=== PATIENT | male | born 1945 | race Caucasian/White ===

== ENCOUNTER → 2020-05-15 17:04 | Outpatient (CLI) | payer MEDICARE, SELFPAY ==
[2020-05-15 19:15] LABS: Chloride 102 mmol/L (98-107); Potassium 4.5 mmoL/L (3.5-5.1); Sodium 141 mmol/L (136-145)
[2020-05-15 19:17] LABS: Blood Urea Nitrogen 26 mg/dl (9-20); Estimated Glomerular Filt Rate 65 ml/min (>60); GFR (African American) 79 ML/MIN (>60)
[2020-05-15 19:18] LABS: Alanine Aminotransferase 21 U/L (12-78); Albumin Level 4.7 g/dl (3.5-5.0); Albumin/Globulin Ratio 1.6 (1.1-1.8); Alkaline Phosphatase 79 U/L (38-126); Anion Gap 16.5 mEq/L (5-15); Aspartate Amino Transferase 30 U/L (17-59); Bilirubin,Total 0.6 mg/dl (0.2-1.3); Calcium 9.5 mg/dl (8.4-10.2); Carbon Dioxide 27 mmol/L (22.0-30.0); Globulin 2.9 g/dL (1.3-3.2); Glucose 93 mg/dl (74-100); Total Protein,Serum 7.6 g/dl (6.3-8.2)
[2020-05-17 09:10] LABS: Hep A Ab, IgM Negative (Negative); Hepatitis B Core Antibody IgM Negative (Negative); Hepatitis B Surface Antigen Negative (Negative)
[2020-05-17 11:29] LABS: Hepatitis C Antibody <0.1 s/co ratio (0.0-0.9)
== END ==
PROVIDERS: Visit Provider Family Medicine
DX: Z20.5 Contact with and (suspected) exposure to viral hepatitis (principal); R53.83 Other fatigue
CPT/HCPCS: 80053; 80074

== ENCOUNTER → 2020-06-28 14:26 | Outpatient (CLI) | payer MEDICARE, SELFPAY ==
--- NOTE | 2020-06-28 14:31 | XR_ITS ---
PROCEDURE: XR CHEST 2V CLINICAL HISTORY: pulmonary fibrosis Pulmonary fibrosis, shortness of air COMPARISON: No exams were available for comparison FINDINGS: There has been a prior CABG. Bipolar pacemaker is present from left subclavian approach. The lungs are clear without infiltrates, suspicious nodules, or pleural effusions. No acute bony abnormalities. IMPRESSION: No acute findings. Dictated by: Girish Berumen MD 06/28/2020 14:47 Girish Berumen MD in [place] 06/28/2020 14:47
== END ==
PROVIDERS: PCP Family Medicine; Visit Provider Family Medicine
DX: R05 Cough (principal)
CPT/HCPCS: 71046

== ENCOUNTER → 2020-07-27 13:10 | Outpatient (CLI) | payer MEDICARE, SELFPAY ==
--- NOTE | 2020-07-27 14:49 | PC.NURSE ---
PFT and 6 minute walk test completed without incident. Albuterol 0.083% given per protocol, Pt tolerated well.
--- NOTE | 2020-07-27 14:51 | CT_ITS ---
PROCEDURE: CT LUNG SCREENING CLINICAL INDICATION: LDCT Thirty pack-year smoking history, asymptomatic for lung cancer COMPARISON: CR XR CHEST 2V from 06/28/2020 TECHNIQUE: The exam was performed on a GE Light Speed [address] scanner using 2.90 mGy CTDI. A low dose helical CT CHEST was performed on a multi-detector scanner. All CT scans at the facility use one or more dose reduction, viz: automated exposure control, ma/kV adjustment per patient size (including targeted exams where dose is matched to indication, i.e. head), or iterative reconstruction technique. The LDCT was performed in a facility that meets the criteria for the screening program. Data regarding this exam was submitted to ACR which is an approved registry. The order for this exam indicates that it came as a result of a lung cancer screening counseling shard decision-making visit that included all the elements required of such a visit including smoking cessation. The radiologist interpreting this exam meets the CMS criteria for the LDCT lung cancer screening program. The exam is reported using the Lung-RADS classification scale and reported to the ACR registry. NOTE: This study was performed for the specific purposes of lung cancer screening and is not an alternative to diagnostic chest CT. RADIATION DOSE: CTDI vol(CT dose Index-volume) = 2.90mG DLP (Dose Length Product) = 109.68 mGcm FINDINGS: Artifact is present from the pacemaker. Changes of COPD with scattered areas of scarring with bronchial thickening and evidence of old granulomatous disease. Faint nodularity present in the right upper lobe laterally with a tree in bud pattern and may be post infectious in nature. Mild bronchiectasis left lower lobe posteriorly and medially with some atelectatic or fibrotic changes at this area. OTHER FINDINGS: Scattered small mediastinal lymph nodes. Prior median sternotomy/CABG with coronary artery calcifications and/or stents noted. There is mild fusiform dilatation of the lower descending thoracic aorta at 3.5 cm. There is an exophytic isodense the projecting off the posterior aspect of the left kidney superiorly at 2 cm and may represent a renal cyst. There is mild wedging of L1 age indeterminate. IMPRESSION: Lung-RADS Category 1 Negative Follow-up: Continue annual screening with LDCT in 12 months Other findings including COPD, bronchial thickening, and bronchiectasis in the left lower lobe with a nonspecific small area of tree in bud pattern in the right upper lobe which may be infectious in nature. Dictated by: Girish Berumen MD 08/05/2020 07:25 Girish Berumen MD in [facility] 08/05/2020 07:25
== END ==
PROVIDERS: PCP Family Medicine; Visit Provider Internal Medicine Pulmonary Disease
DX: Z87.891 Personal history of nicotine dependence (principal); Z12.2 Encounter for screening for malignant neoplasm of respiratory organs; R06.09 Other forms of dyspnea
CPT/HCPCS: 71271; 94060; 94618; 94726; 94729

== ENCOUNTER → 2020-08-10 11:08 | Outpatient (CLI) | payer MEDICARE, SELFPAY | PROVIDERS: Visit Provider Internal Medicine Pulmonary Disease | DX: R06.02 Shortness of breath (principal) ==

== ENCOUNTER → 2020-08-14 10:02 | Outpatient (CLI) | payer MEDICARE, SELFPAY ==
[2020-08-14 11:41] LABS: Basophils % 0.5 % (0.1-2.0); Eosinophils # 0.2 K/mm3 (0.0-0.4); Eosinophils % 2.4 % (0.1-12.0); Hematocrit 50.1 % (42.0-52.0); Hemoglobin 15.9 g/dL (14.1-18.0); Lymphocytes # 2.1 K/mm3 (0.7-4.5); Lymphocytes % 25.8 % (10-50); Mean Corpuscular HGB Conc 31.7 g/dL (31.8-35.4); Mean Corpuscular Hemoglobin 30.7 pg (27.0-31.2); Mean Corpuscular Volume 96.7 fl (80-94); Mean Platelet Volume 7.9 fl (7.4-10.4); Monocytes # 0.5 K/mm3 (0.1-1.0); Monocytes % 6.3 % (1.7-9.3); Neutrophils # 5.3 K/mm3 (1.8-7.8); Platelet Count 269 K/mm3 (142-424); Red Blood Count 5.18 M/mm3 (4.60-6.20); Red Cell Distribution Width 13.9 % (11.5-17.5); White Blood Count 8.1 K/mm3 (4.8-10.8)
[2020-08-14 12:51] LABS: C-Reactive Protein 6.3 mg/L (0-4)
[2020-08-18 14:10] LABS: D001-IgE D pteronyssinus <0.10 kU/L (Class 0); D002-IgE D farinae <0.10 kU/L (Class 0); E001-IgE Cat Dander <0.10 kU/L (Class 0); E005-IgE Dog Dander <0.10 kU/L (Class 0); G002-IgE Bermuda Grass <0.10 kU/L (Class 0); G006-IgE Timothy Grass <0.10 kU/L (Class 0); I006-IgE Cockroach, German <0.10 kU/L (Class 0); Immunoglobulin E, Total 483 IU/mL (6-495); M001-IgE Penicillium chrysogen <0.10 kU/L (Class 0); M002-IgE Cladosporium herbarum <0.10 kU/L (Class 0); M003-IgE Aspergillus fumigatus <0.10 kU/L (Class 0); M006-IgE Alternaria alternata <0.10 kU/L (Class 0); T001-IgE Maple/Box Elder <0.10 kU/L (Class 0); T006-IgE Cedar, Mountain <0.10 kU/L (Class 0); T007-IgE Oak, White <0.10 kU/L (Class 0); T008-IgE Elm, American <0.10 kU/L (Class 0); T010-IgE Walnut <0.10 kU/L (Class 0); T011-IgE Maple Leaf Sycamore <0.10 kU/L (Class 0); T014-IgE Cottonwood <0.10 kU/L (Class 0); T015-IgE Ash, White <0.10 kU/L (Class 0); T022-IgE Pecan, Hickory <0.10 kU/L (Class 0); T070-IgE White Mulberry <0.10 kU/L (Class 0); W001-IgE Ragweed, Short <0.10 kU/L (Class 0); W011-IgE Thistle, Russian <0.10 kU/L (Class 0); W014-IgE Pigweed, Common <0.10 kU/L (Class 0); W016-IgE Rough Marshelder <0.10 kU/L (Class 0)
[2020-08-18 17:24] LABS: E072-IgE Mouse Urine <0.10 kU/L (Class 0); QuantiFERON-TB Gold Plus Negative (Negative)
== END ==
PROVIDERS: Visit Provider Internal Medicine Pulmonary Disease
DX: R06.00 Dyspnea, unspecified; J18.9 Pneumonia, unspecified organism; J45.909 Unspecified asthma, uncomplicated; J47.9 Bronchiectasis, uncomplicated; G47.34 Idiopathic sleep related nonobstructive alveolar hypoventilation; Z87.891 Personal history of nicotine dependence
CPT/HCPCS: 36415; 82785; 85025; 86003; 86140; 86480; 87070; 87205

== ENCOUNTER → 2020-08-15 10:54 | Outpatient (CLI) | payer MEDICARE, SELFPAY | PROVIDERS: Visit Provider Internal Medicine Pulmonary Disease | DX: R06.00 Dyspnea, unspecified; J47.9 Bronchiectasis, uncomplicated; R93.89 Abnormal findings on diagnostic imaging of other specified body structures; J45.909 Unspecified asthma, uncomplicated; G47.34 Idiopathic sleep related nonobstructive alveolar hypoventilation; Z87.891 Personal history of nicotine dependence | CPT/HCPCS: 87116; 87186; 87206 ==

== ENCOUNTER 2020-08-17 12:41 | Emergency (ER) | payer MEDICARE, SELFPAY ==
[2020-08-17 12:42] VITALS: BP 106/59; PULSE 67; RESP 20; TEMP 36.1; O2SAT 90; O2SAT 95; BMI 28.7
--- NOTE | 2020-08-17 12:42 | ECG_ITS ---
APPROVED REPORT Exam: Resting ECG HR:67 bpm ECG Measurements Heart Rate 67 AXES NH 214 P 72 QRSd 100 QRS -70 QT 372 T 130 QTc 393 Conclusion Sinus rhythm with 1st degree AV block Left axis deviation Septal infarct, age undetermined ST & T wave abnormality, consider lateral ischemia Abnormal ECG Electronically signed by : Bhargav Palma, 08/17/2020 18:43:52
--- NOTE | 2020-08-17 12:55 | XR_ITS ---
PROCEDURE: XR CHEST PORTABLE CLINICAL HISTORY: SOB Shortness of breath COMPARISON: CR XR CHEST 2V from 06/28/[address] LUNG SCREENING from 07/27/2020 FINDINGS: Bipolar pacemaker is present from left subclavian approach. Normal heart size. Prior CABG. The lungs are clear without infiltrates, suspicious nodules, or pleural effusions. Faint nodularity noted overlying the left lower lung zone at the 5th rib possibly due to nipple shadow and could be confirmed nipple markers.. No acute bony abnormalities. IMPRESSION: As above, no acute finding Dictated by: Girish Berumen MD 08/17/2020 15:03 Girish Berumen MD in [facility] 08/17/2020 15:03
--- NOTE | 2020-08-17 12:59 | CT_ITS ---
PROCEDURE: CT HEAD/BRAIN WO CON CLINICAL INDICATION: syncope Syncope, Altered mental status, altered level of consciousness, confusion, disorientation COMPARISON: No exams were available for comparison TECHNIQUE: Axial images obtained. All CT scans at the facility use one or more dose reduction, viz: automated exposure control, ma/kV adjustment per patient size (including targeted exams where dose is matched to indication, i.e. head), or iterative reconstruction technique. FINDINGS: No midline shift, mass effect, intracranial hemorrhage, hydrocephalus, or extra-axial fluid collection is evident. There is generalized atrophy with hypoattenuation of the periventricular white matter consistent with microangiopathic changes.. Low-density changes are present in the left frontal lobe suggesting an area old infarction. The calvarium has an unremarkable appearance. No mastoid effusion. No sinus air-fluid level. IMPRESSION: No acute intracranial finding Dictated by: Girish Berumen MD 08/17/2020 14:56 Girish Berumen MD in [facility] 08/17/2020 14:56
--- NOTE | 2020-08-17 12:59 | HMH.EDGENADL ---
ED Disposition Clinical Impression: Elevated serum creatinine Syncope Qualifiers: Syncope type: unspecified Qualified Code(s): R55 - Syncope and collapse Hypotension Qualifiers: Hypotension type: unspecified hypotension type Qualified Code(s): I95.9 - Hypotension, unspecified Disposition: Home, Self-Care Condition on Discharge: Good Instructions: DI for Syncope in Adults (Fainting), DI for Hypotension Additional Instructions: Follow-up with Dr. Padilla immediately following your visit here. Referrals: Aman Padilla MD [Primary Care Provider] - - Critical Care Critical Care Time: No Attestation: On 08/17/20, the high probability of a clinically significant, sudden or life threatening deterioration of the following system(s) required my full and direct attention, intervention and personal management. The time I documented below is in addition to time spent performing reported procedures but includes the following listed in this critical care notation. Medical Decision Making - Medical Records Medical records reviewed: Yes: I reviewed the patient's medical records. - Jett Inquiry Pt receiving controlled substance: No Vital Signs: 08/17/20 12:42 08/17/20 13:44 Temperature 97 F L Temperature Source Oral Pulse Rate [Radial] 67 76 Respiratory Rate 20 Blood Pressure [Right Arm] 106/59 L 97/61 L Blood Pressure Mean [Right Arm] 74 73 Blood Pressure Source [Right Arm] Automatic Cuff Blood Pressure Position [Right Arm] Sitting Sitting 02 Sat by Pulse Oximetry 95 93 L Oxygen Delivery Method Nasal Cannula Nasal Cannula Oxygen Flow Rate (LPM) 2 2 - Lab Data Lab results reviewed: Yes: I reviewed the patient's lab results. Lab Results 08/17/20 13:20: WBC 8.1, RBC 5.19, Hgb 16.0, Hct 50.1, MCV 96.4 H, MCH 30.8, MCHC 31.9, RDW 13.8, Plt Count 305, MPV 7.8, Neut % (Auto) 71.0, Lymph % (Auto) 21.2, Cooke % (Auto) 5.5, Eos % (Auto) 1.8, Baso % (Auto) 0.5, Neut # (Auto) 5.7, Lymph # (Auto) 1.7, [place]oke # (Auto) 0.4, Eos # (Auto) 0.2, Baso # (Auto) 0.0 08/17/20 13:20: Sodium 140, Potassium 4.5, Chloride 100, Carbon Dioxide 33 H, Anion Gap 11.5, BUN 29 H, Creatinine 1.90 H, Estimated Creat Clear 39, Estimated GFR 35 L, Est GFR ( Amer) 42 L, Glucose 154 H, Calcium 9.3, Troponin I 0.02 08/17/20 13:20: Total Bilirubin 0.5, Direct Bilirubin 0.3, Conjugated Bilirubin 0.0, Indirect Bilirubin 0.2, Unconjugated Bilirubin 0.2, AST 47, ALT 27, Alkaline Phosphatase 74, NT-Pro-B Natriuret Pep 202 H, Total Protein 7.3, Albumin 4.3 08/17/20 13:20: Lactate 1.7 08/17/20 13:20: SARS-CoV-2 IgG Ab (Rapid) Negative, SARS-CoV-2 IgM Ab (Rapid) Negative Result diagrams: 08/17/20 13:20 08/17/20 13:20 Orders (Tests/Meds): ED MEDICATIONS Generic Name Dose Route Start Last Admin Trade Name Freq PRN Reason Stop Dose Admin Sodium Chloride 1,000 mls @ 999 mls/hr 08/17/20 14:15 08/17/20 14:27 Sod Chlor 0.9% 1000ml Bag IV 08/17/20 15:15 999 mls/hr .Q1H1M ADAM Administration ORDERS Category Date Time Status CT head/brain wo con Stat Cat Scan 08/17/20 12:59 Taken XR chest portable Stat Exams 08/17/20 12:55 Taken Troponin I Q3H Lab 08/17/20 16:00 Ordered Troponin I Q3H Lab 08/17/20 19:00 Ordered Blood Culture Stat Micro 08/17/20 13:20 Received - Radiology Data #1 Image(s): Chest Image Reviewed: Yes I reviewed the patient's radiology image Preliminary Findings: Normal/NAD - CT Data CT Scan: Head Time Received: 14:47 Preliminary Findings: Normal/NAD - ECG Data Tracing #1 EKG at 1242 shows a sinus rhythm with borderline first-degree block. Rate of 67. Normal QRS, QTc. No STEMI. EKG interpreted by me. Medical Decision Narrative: Patient with CT head that is negative. He is feeling much better after observation here and fluids. Creatinine slightly elevated at 1.9 likely secondary to a degree of dehydration with both his furosemide and spironolactone. His chest x-ray is clear so he was s
--- NOTE | 2020-08-17 13:01 | PC.NURSE ---
VS delayed due to attempting to get IV access.
--- NOTE | 2020-08-17 13:08 | PC.NURSE ---
Rad at bedside
[2020-08-17 13:35] LABS: Basophils % 0.5 % (0.1-2.0); Eosinophils # 0.2 K/mm3 (0.0-0.4); Eosinophils % 1.8 % (0.1-12.0); Hematocrit 50.1 % (42.0-52.0); Lymphocytes # 1.7 K/mm3 (0.7-4.5); Lymphocytes % 21.2 % (10-50); Mean Corpuscular HGB Conc 31.9 g/dL (31.8-35.4); Mean Corpuscular Hemoglobin 30.8 pg (27.0-31.2); Mean Corpuscular Volume 96.4 fl (80-94); Mean Platelet Volume 7.8 fl (7.4-10.4); Monocytes # 0.4 K/mm3 (0.1-1.0); Monocytes % 5.5 % (1.7-9.3); Neutrophils # 5.7 K/mm3 (1.8-7.8); Platelet Count 305 K/mm3 (142-424); Red Blood Count 5.19 M/mm3 (4.60-6.20); Red Cell Distribution Width 13.8 % (11.5-17.5); White Blood Count 8.1 K/mm3 (4.8-10.8)
[2020-08-17 13:38] LABS: Chloride 100 mmol/L (98-107); Sodium 140 mmol/L (136-145)
[2020-08-17 13:39] LABS: Potassium 4.5 mmoL/L (3.5-5.1)
[2020-08-17 13:40] LABS: Bilirubin,Unconjugated 0.2 mg/dL (0.0-1.1); Lactic Acid 1.7 mmol/L (0.7-2.1)
[2020-08-17 13:41] LABS: Alanine Aminotransferase 27 U/L (12-78); Albumin Level 4.3 g/dl (3.5-5.0); Alkaline Phosphatase 74 U/L (38-126); Aspartate Amino Transferase 47 U/L (17-59); Bilirubin,Direct 0.3 mg/dl (0.0-0.4); Bilirubin,Indirect 0.2 mg/dL (0.0-0.9); Bilirubin,Total 0.5 mg/dl (0.2-1.3); Blood Urea Nitrogen 29 mg/dl (9-20); Creatinine Clearance Estimated 39 mL/min (50-200); Estimated Glomerular Filt Rate 35 ml/min (>60); GFR (African American) 42 ML/MIN (>60); Total Protein,Serum 7.3 g/dl (6.3-8.2)
[2020-08-17 13:42] LABS: Anion Gap 11.5 mEq/L (5-15); Calcium 9.3 mg/dl (8.4-10.2); Carbon Dioxide 33 mmol/L (22.0-30.0); Glucose 154 mg/dl (74-100)
[2020-08-17 13:44] VITALS: BP 97/61; PULSE 76; O2SAT 93
[2020-08-17 13:50] LABS: NT Pro Brain Natriuretic Pep. 202 pg/mL (0-125)
[2020-08-17 13:54] LABS: Troponin I 0.02 ng/ml (0.00-0.034)
[2020-08-17 14:03] LABS: Coronavirus 19 IgG Antibody Negative (Negative); Coronavirus 19 IgM Antibody Negative (Negative)
[2020-08-17 14:59] VITALS: BP 133/62; PULSE 88
[2020-08-17 15:51] VITALS: BP 123/73; PULSE 88; RESP 24; TEMP 36.4; O2SAT 97
== END 2020-08-17 15:52 | disposition home or self-care (01) ==
PROVIDERS: Emergency Provider Emergency Medicine; PCP Family Medicine
DX: R55 Syncope and collapse (principal); I95.9 Hypotension, unspecified; I50.9 Heart failure, unspecified; I25.10 Atherosclerotic heart disease of native coronary artery without angina pectoris; J44.9 Chronic obstructive pulmonary disease, unspecified; E11.9 Type 2 diabetes mellitus without complications; Z01.84 Encounter for antibody response examination; Z99.81 Dependence on supplemental oxygen; Z88.2 Allergy status to sulfonamides; Z79.899 Other long term (current) drug therapy; E78.5 Hyperlipidemia, unspecified
CPT/HCPCS: 70450; 71045; 80048; 80076; 83605; 83880; 84484; 85025; 86328; 87040; 93005; 96365; 99284

== ENCOUNTER → 2021-02-22 12:07 | Outpatient (CLI) | payer MEDICARE, SELFPAY ==
--- NOTE | 2021-02-22 12:07 | CT_ITS ---
PROCEDURE: CT LUMBAR SPINE WO CON CLINICAL HISTORY: Severe back pain, claudication Pain over entire back x20yrs COMPARISON: CT CT LUNG SCREENING from 07/27/2020 TECHNIQUE: Axial images obtained with sagittal and coronal reformats. All CT scans at the facility use one or more dose reduction, viz: automated exposure control, ma/kV adjustment per patient size (including targeted exams where dose is matched to indication, i.e. head), or iterative reconstruction technique. FINDINGS: Normal alignment. T12-L1: Mild chronic wedge compression changes L1 with loss of anteriorly of 25 percent and no retropulsion unchanged 07/27/2020. A Schmorl's node is present along the superior endplate of L1 on the right. L1-L2: Unremarkable. L2-L3: Concentric bulging disc with facet and ligamentum hypertrophic change with bilateral lateral recess and foraminal narrowing. The disc is somewhat eccentric toward the left with left-sided foraminal narrowing greater than right with some impingement laterally upon the exiting L2 nerve root. Facet hypertrophic changes are also greater on the left. L3-L4: Degenerative disc disease with concentric bulging disc with endplate hypertrophic change. There is facet and ligamentum hypertrophic change with severe canal stenosis. There is a associated medium-sized right lateral/foraminal disc herniation extending posteriorly along the lateral aspect of the superior facet of L4. L4-5: Degenerative disc disease with a prominent bulging disc. There is severe facet and ligamentum hypertrophy with severe canal stenosis. There is severe bilateral foraminal narrowing with impingement upon the exiting L4 nerve roots on both sides. L5-S1: Degenerative disc disease with bulging disc and endplate hypertrophic change along with severe facet and ligamentum hypertrophy with impingement upon the exiting L5 nerve roots right greater than left. 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 At the bifurcation of the conjoined nerve root the S1 nerve root descends within a neural foramen with impingement upon the descending S1 nerve root from bony hypertrophy. There is fusiform dilatation of the abdominal aorta at the L3 level measuring at least 3.3 cm. The anterior aspect of the aorta is not included on the exam. There is a 2 cm left renal cyst IMPRESSION: Abnormal CT of the lumbar spine with multilevel lumbar spondylosis with degenerative disc disease, bulging disc, endplate osteophytes, and severe facet and ligamentum hypertrophy with multi level canal stenosis and areas of neural impingement with facet and lateral recess narrowing. There is a lateral herniated disc on the right at L3-L4. Please see above for detailed description at each level. 3.3 cm fusiform abdominal aortic aneurysm Dictated by: Girish Berumen MD 02/23/2021 08:34 Girish Berumen MD in [facility] 02/23/2021 08:34
== END ==
PROVIDERS: PCP Family Medicine; Visit Provider Specialist
DX: G89.29 Other chronic pain (principal); M47.27 Other spondylosis with radiculopathy, lumbosacral region; M54.5 Low back pain
CPT/HCPCS: 72131

== ENCOUNTER → 2021-04-11 11:34 | Outpatient (CLI) | payer MEDICARE, SELFPAY ==
--- NOTE | 2021-04-11 11:43 | CT_ITS ---
Procedure: CT ANGIO ABDOMEN/FEMORAL CLINICAL HISTORY: PERIPHERAL VASCULAR DISEASE Lower extremity with activity, COMPARISON: No exams were available for comparison TECHNIQUE: IV Contrast: 100ml Isovue 370 Axial images obtained with sagittal and coronal reformats. All CT scans at the facility use one or more dose reduction, viz: automated exposure control, ma/kV adjustment per patient size (including targeted exams where dose is matched to indication, i.e. head), or iterative reconstruction technique. FINDINGS: Abdominal aorta: There is an abdominal aortic aneurysm measuring up to 3.3 cm transverse and 3.5 cm AP. The aneurysm begins at the level of the renal arteries. There is a moderate amount of mural thrombus. The aneurysm extends to the level 2.7 cm above the aortic bifurcation. There is dilatation of the proximal common iliacs measuring 1.5 cm on the right and 1.3 cm on the left. The mural thrombus within the aneurysm begins at the level of the renal arteries and is causing severe stenosis of the ostium of the left renal artery of 90 percent. This stenosis is 6 mm in length. There is also severe stenosis of the proximal aspect of the right renal artery of at least 80 percent best demonstrated on the sagittal reformatted images. The celiac and SMA have an unremarkable appearance. The AMY is patent. Iliacs: There is mild dilatation of the proximal right common iliac at 1.5 cm. 60 percent short segment Stenosis is present involving the mid aspect of the right external iliac artery. No significant stenosis of the left external iliac or common iliac artery. Right lower extremity runoff: Diffuse atheromatous changes are present involving the femoral artery with multi segmental stenotic areas most severe in the mid to distal SFA up to 70-80 percent. No evidence of occlusion of the SFA. Atheromatous changes involve the popliteal artery. Tibial peroneal trunk is unremarkable with 3 vessel runoff to the ankle on the right Left lower extremity runoff: Atheromatous changes involve the SFA throughout its course with multi segmental areas of stenosis with 50 percent stenosis in the proximal SFA with severe stenosis involving the proximal to mid left SFA of 80 percent short segment.. There is poor opacification of the distal SFA and popliteal region. Delayed images were obtained from the popliteal region down however, there is a small segment at the junction of the left SFA and popliteal which is not adequately opacified. The no significant popliteal stenosis. Tibial peroneal trunk is patent and there is 3 vessel runoff to the ankle on the left. The Nonvascular the gallbladder is contracted with mild thickening of the wall. The no evidence of retroperitoneal hemorrhage. Nonspecific calcification noted in the head of the pancreas. There is colonic diverticulosis but no evidence of diverticulitis. IMPRESSION: 1. Abdominal aortic aneurysm beginning at the level of the renal arteries and extending to just above the aortic bifurcation 3.5 x 3.3 cm with a moderate amount of mural thrombus. 2. Severe bilateral renal artery stenosis. The mural thrombus of the aneurysm appears to be contributing factor to the left renal artery stenosis at its ostium. 3. Mildly dilated proximal common iliacs at 1.5 cm on the right and 1.3 cm on the left. 6 percent short segment stenosis in the mid aspect of the right external iliac artery 4. Diffuse atheromatous changes involve the femoral artery on both sides with high-grade segmental areas of stenosis as described above 5. Three vessel runoff to the ankle bilaterally. Dictated by: Girish Berumen MD 04/11/2021 16:28 Girish Berumen MD in [facility] 04/11/2021 16:28
[2021-04-11 12:25] LABS: Blood Urea Nitrogen 33 mg/dl (9-20); Estimated Glomerular Filt Rate 49 ml/min (>60); GFR (African American) 60 ML/MIN (>60)
--- NOTE | 2021-04-11 12:35 | US_ITS ---
APPROVED REPORT Exam Type: Ankle to Brachial Index Family Life Educator: Ediht Rodriguez CRT Indications Claudication: Bilaterally Rest Pain: Bilaterally Risk Factors Hypertension TIA/CVA History Pressures/Indices Right Indices Left Indices Brachial 117.00 mmHg Brachial 121.00 mmHg Low Thigh 69.00 mmHg 0.57 Low Thigh 129.00 mmHg 1.07 Calf 90.00 mmHg 0.74 Calf 102.00 mmHg 0.84 Ankle(PT) 93.00 mmHg 0.77 Ankle(PT) 107.00 mmHg 0.88 Ankle(DP) 91.00 mmHg 0.75 Ankle(DP) 110.00 mmHg 0.91 Digit 85.00 mmHg 0.70 Digit 64.00 mmHg 0.53 Findings R SARAH 0.8 L SARAH 0.91 R TBI 0.70 L TBI 0.53 Weakened and dampened pulses in Rt lower extremity Abnormal waveforms throughout exam with cardiac arrhythmia. Abnormal toe pressures bilaterally. Conclusion R SARAH 0.8 L SARAH 0.91 R TBI 0.70 L TBI 0.53 Weakened and dampened pulses in Rt lower extremity Abnormal waveforms throughout exam with cardiac arrhythmia. Abnormal toe pressures bilaterally. Electronically signed by : Girish Berumen MD 04/11/2021 16:38:05
== END ==
PROVIDERS: PCP Family Medicine; Visit Provider Surgery
DX: I73.9 Peripheral vascular disease, unspecified (principal); I71.4 Abdominal aortic aneurysm, without rupture
CPT/HCPCS: 36415; 75635; 82565; 84520; 93923; Q9967

== ENCOUNTER 2021-04-19 07:35 | Day surgery (SDC) | payer MEDICARE, SELFPAY ==
[2021-04-19] VITALS (12 sets, daily range): BP systolic 128–167; BP diastolic 73–102; PULSE 67–87; RESP 16–18; O2SAT 87–99; BMI 25.3
--- NOTE | 2021-04-19 | IR_ITS ---
APPROVED REPORT Patient Location: Outpatient PROCEDURES Bilateral selective renal angiogram Catheter placed in the abdominal aorta Abdominal aortography Repositioning of the catheter in the abdominal aorta Bilateral iliofemoral runoff Bare-metal stent deployment to the left renal artery INDICATION Abnormal CTA, Known renal artery stenosis, Renovascular hypertension, Abnormal SARAH, Alexsander claudication class III Informed consent was obtained prior to the procedure. COMPLICATIONS NONE Estimated Blood Loss: LESS THAN 10 ML TECHNIQUE 1% lidocaine used anesthetize right groin the right femoral was accessed via the Salinger technique and a 5 Kiswahili sheath was placed in the right femoral artery. A JR4 catheter was used to perform bilateral selective renal angiography. At the end of this procedure the pigtail catheter was placed in the abdominal aorta and abdominal aortography was performed. The catheter was repositioned and bilateral iliofemoral off was performed. Following this therapeutic heparin was administered and the 5 Kiswahili sheath was exchanged for a 7 Kiswahili sheath. Short BARDALES guide catheter was used to intubate the left renal artery and a Choice PT wire was placed distally. A 6 mm x 12 mm Herculink stent was deployed at 12 denise reducing the severe stenosis to 0%. At the end of the procedure the apparatus was removed the groin was reprepped closure changed sheath was removed good hemostasis was achieved using Perclose device patient was transferred to the postop holding area stable condition ANGIOGRAPHIC RESULTS Right renal artery singular and has an eccentric 30 to 40% nonflow limiting stenosis Left renal artery has an ostial 90% eccentric stenosis The infrarenal abdominal aorta is mildly atheromatous and aneurysmal with no stenosis greater than 10% The bilateral common iliac arteries are mildly atheromatous with diffuse 20 to 30%. The bilateral internal iliac arteries are patent. The bilateral external iliac arteries have mild atheromatous plaque with the right external iliac artery having concentric 30% stenosis. The bilateral common femoral arteries are calcified with mild 10 to 20% atheromatous plaque The bilateral profunda femoris arteries are widely patent. The right superficial femoral artery has a mid vessel 90% stenosis with diffuse distal 40% stenoses but is patent with the popliteal artery also being widely patent with mild atheromatous plaque. The popliteal artery then gives rise to the anterior and posterior tibialis artery which are patent to the right foot The left superficial femoral artery has proximal and mid vessel diffuse 70-80% and 90% stenoses. There is inline flow into a 40% diffusely diseased popliteal artery with two-vessel runoff below the knee on the left side IMPRESSION Severe left renal artery stenosis with successful stenting reducing the stenosis to 0% with bare-metal stent Mild to moderate right renal artery stenosis Peripheral artery disease as described above most notably having moderate to severe SFA disease with two-vessel runoff below the knee PLAN 1. Aspirin Plavix for 1 month 2. Start Xarelto 2.5 p.o. twice daily to be started after 48 hours. In 1 month Plavix may be discontinued 3. Recommend medical management of the peripheral artery disease. At this time I do not believe revascularizing the SFAs would have long-term benefit to the patient 4. LDL less than 55 to be achieved with high intensity statin 5. Should patient develop recalcitrant claudication or poorly healing lower extremity ulcers or infections only then would I revascularize the legs. Electronically signed by : Luc Mccauley MD 04/19/2021 12:12:37
[2021-04-19 08:41] LABS: Coronavirus 19, PCR Not Detected (NotDetected); Influenza A, PCR Not Detected (NotDetected); Influenza B, PCR Not Detected (NotDetected)
[2021-04-19 08:44] LABS: Basophils % 0.5 % (0.1-2.0); Eosinophils # 0.2 K/mm3 (0.0-0.4); Eosinophils % 2.2 % (0.1-12.0); Hematocrit 44.5 % (42.0-52.0); Hemoglobin 14.2 g/dL (14.1-18.0); Lymphocytes # 2.3 K/mm3 (0.7-4.5); Lymphocytes % 32.3 % (10-50); Mean Corpuscular Hemoglobin 30.7 pg (27.0-31.2); Mean Corpuscular Volume 95.8 fl (80-94); Mean Platelet Volume 8.1 fl (7.4-10.4); Monocytes # 0.4 K/mm3 (0.1-1.0); Monocytes % 5.9 % (1.7-9.3); Neutrophils # 4.1 K/mm3 (1.8-7.8); Neutrophils % 59.1 % (37.0-80.0); Platelet Count 248 K/mm3 (142-424); Red Blood Count 4.64 M/mm3 (4.60-6.20); Red Cell Distribution Width 13.3 % (11.5-17.5)
[2021-04-19 08:52] LABS: Chloride 106 mmol/L (98-107); Sodium 144 mmol/L (136-145)
[2021-04-19 08:55] LABS: Blood Urea Nitrogen 25 mg/dl (9-20); Calcium 8.7 mg/dl (8.4-10.2); Carbon Dioxide 30 mmol/L (22.0-30.0); Creatinine Clearance Estimated 64 mL/min (50-200); Estimated Glomerular Filt Rate 73 ml/min (>60); GFR (African American) 88 ML/MIN (>60); Glucose 102 mg/dl (74-100)
[2021-04-19 13:05] LABS: CATHL Activated Clotting Time 354 SEC (74-125)
--- NOTE | 2021-04-19 14:23 | HMH.PHACLD ---
Rishi Leiva SR has received discharge medication counseling on the following medications: -PLAVIX -ASA -XARELTO -ATORVASTATIN -LOSARTAN -CARVEDILOL
== END 2021-04-19 13:17 | disposition home or self-care (01) ==
LOC: CATHLAB 07:37
PROVIDERS: PCP Family Medicine; Visit Provider Internal Medicine
DX: I70.213 Atherosclerosis of native arteries of extremities with intermittent claudication, bilateral legs (principal); I15.0 Renovascular hypertension; I70.1 Atherosclerosis of renal artery; I70.92 Chronic total occlusion of artery of the extremities; Z79.01 Long term (current) use of anticoagulants; Z79.02 Long term (current) use of antithrombotics/antiplatelets; Z79.899 Other long term (current) drug therapy; Z20.822 Contact with and (suspected) exposure to COVID-19
CPT/HCPCS: 36247; 37236; 75716; 80048; 85025; 85347; 99152; 99153; C1725; C1760; C1769; C1876; C1894; C9803; J1644; Q9966; U0003; U0005

== ENCOUNTER 2021-08-06 12:27 | Inpatient (IN) | payer MEDICARE, SELFPAY ==
[2021-08-06] VITALS (7 sets, daily range): BP systolic 106–134; BP diastolic 69–82; PULSE 77–87; RESP 17–20; TEMP 36.4–37.2; O2SAT 86–100; BMI 23.5; BMI 24.3
--- NOTE | 2021-08-06 12:29 | XR_ITS ---
FINAL REPORT CLINICAL HISTORY: soa COMPARISON: 08/17/2020 FINDINGS: Two views of the chest were obtained. The patient is status post median sternotomy. There is a left subclavian AICD. The heart size and pulmonary vascularity are within normal limits. The mediastinum is normal. There is left basilar atelectasis. There is no pneumothorax. The bony thorax is intact. IMPRESSION: Left basilar atelectasis. Reviewed, Interpreted and Dictated by Lawson Dave III, MD Transcribed by Bria Goodrich Authenticated by Lawson Dave III, MD on 08/06/2021 02:32:[address] [facility]
--- NOTE | 2021-08-06 12:29 | HMH.EDGENADL ---
ED Disposition Clinical Impression: COVID-19 virus infection, COPD exacerbation Respiratory failure with hypoxia Qualifiers: Chronicity: acute on chronic Qualified Code(s): J96.21 - Acute and chronic respiratory failure with hypoxia Disposition: Admitted As Inpatient Condition on Discharge: Fair Referrals: Aman Padilla MD [Primary Care Provider] - - Critical Care Critical Care Time: No Attestation: On , the high probability of a clinically significant, sudden or life threatening deterioration of the following system(s) required my full and direct attention, intervention and personal management. The time I documented below is in addition to time spent performing reported procedures but includes the following listed in this critical care notation. Medical Decision Making - Jett Inquiry Pt receiving controlled substance: No Vital Signs: 08/06/21 12:54 08/06/21 13:04 08/06/21 13:30 Temperature 97.9 F Temperature Source Oral Pulse Rate 77 Pulse Rate [Left Radial] 85 Respiratory Rate 17 Blood Pressure 106/70 L Blood Pressure [Right Arm] 111/69 Blood Pressure Mean [Right Arm] 83 02 Sat by Pulse Oximetry 86 L 97 100 Oxygen Delivery Method Room Air Nasal Cannula Oxygen Flow Rate (LPM) 2 08/06/21 14:00 Temperature Temperature Source Pulse Rate 78 Pulse Rate [Left Radial] Respiratory Rate Blood Pressure 120/72 Blood Pressure [Right Arm] Blood Pressure Mean [Right Arm] 02 Sat by Pulse Oximetry 97 Oxygen Delivery Method Oxygen Flow Rate (LPM) - Lab Data Lab Results 08/06/21 12:35: SARS-CoV-2 (PCR) Detected A, Influenza A Untype (PCR) Not detected, Influenza Type B (PCR) Not detected 08/06/21 13:01: WBC 6.8, RBC 4.33 L, Hgb 13.6 L, Hct 43.4, MCV 100.3 H, MCH 31.6 H, MCHC 31.5 L, RDW 13.3, Plt Count 216, MPV 7.6, Neut % (Auto) 56.4, Lymph % (Auto) 31.1, Alexander % (Auto) 10.3 H, Eos % (Auto) 0.4, Baso % (Auto) 1.8, Neut # (Auto) 3.9, Lymph # (Auto) 2.1, Alexander # (Auto) 0.7, Eos # (Auto) 0.0, Baso # (Auto) 0.1 08/06/21 13:01: Sodium 134 L, Potassium 4.5, Chloride 96 L, Carbon Dioxide 32 H, Anion Gap 10.5, BUN 19, Creatinine 1.50 H, Estimated Creat Clear 41, Estimated GFR 46 L, Est GFR ( Amer) 55 L, Glucose 98, Calcium 8.7, Total Bilirubin 0.2, AST 38, ALT 23, Alkaline Phosphatase 70, Troponin I 0.05 H, NT-Pro-B Natriuret Pep 1900 H, Total Protein 6.9, Albumin 4.3, Globulin 2.6, Albumin/Globulin Ratio 1.7 08/06/21 13:01: PT 10.9, INR 0.96 Result diagrams: 08/06/21 13:01 08/06/21 13:01 Orders (Tests/Meds): ED MEDICATIONS Generic Name Dose Route Start Last Admin Trade Name Freq PRN Reason Stop Dose Admin Albuterol/Ipratropium 2 puff 08/06/21 20:00 Combivent 20mcg/100mcg Respimat Inhaler IH 09/05/21 19:59 QIDRT ADAM Dexamethasone Sodium Phosphate 6 mg 08/06/21 17:00 Dexamethasone 4mg/Ml 1ml Vial IV 09/05/21 16:59 DAILY ADAM Azithromycin 500 mg/ Sodium 250 mls @ 250 mls/hr 08/06/21 17:00 Chloride IV 08/20/21 16:59 Q24H ADAM Discontinued Medications Generic Name Dose Route Start Last Admin Trade Name Freq PRN Reason Stop Dose Admin Iopamidol 75 ml 08/06/21 15:15 08/06/21 15:16 Iopamidol-370 (76%);100ml Bottle IV 08/06/21 15:16 75 ml ONCE ONE Administration ORDERS Category Date Time Status Troponin I Q3H Lab 08/06/21 16:15 Ordered Troponin I Q3H Lab 08/06/21 19:15 Ordered - Radiology Data #1 Image(s): Chest Image Reviewed: Yes I reviewed the patient's radiology image, Yes I have reviewed radiologist's interpretation Ordering Physician: Abel Diana MD Date of Service: 08/06/21 Procedure(s): XR chest 2V Accession Number(s): [id number] cc: Lawson Dave MD; Aman Padilla MD~ FINAL REPORT CLINICAL HISTORY: soa COMPARISON: 08/17/2020 FINDINGS: Two views of the chest were obtained. The patient is status post median sternotomy. There is a left subclavian AICD. The heart size and
[2021-08-06 12:59] LABS: Influenza A, PCR Not Detected (NotDetected); Influenza B, PCR Not Detected (NotDetected)
[2021-08-06 13:14] LABS: Basophils # 0.1 K/mm3 (0-0.2); Basophils % 1.8 % (0.1-2.0); Eosinophils % 0.4 % (0.1-12.0); Hematocrit 43.4 % (42.0-52.0); Hemoglobin 13.6 g/dL (14.1-18.0); Lymphocytes # 2.1 K/mm3 (0.7-4.5); Lymphocytes % 31.1 % (10-50); Mean Corpuscular HGB Conc 31.5 g/dL (31.8-35.4); Mean Corpuscular Hemoglobin 31.6 pg (27.0-31.2); Mean Corpuscular Volume 100.3 fl (80-94); Mean Platelet Volume 7.6 fl (7.4-10.4); Monocytes # 0.7 K/mm3 (0.1-1.0); Monocytes % 10.3 % (1.7-9.3); Neutrophils # 3.9 K/mm3 (1.8-7.8); Neutrophils % 56.4 % (37.0-80.0); Platelet Count 216 K/mm3 (142-424); Red Blood Count 4.33 M/mm3 (4.60-6.20); Red Cell Distribution Width 13.3 % (11.5-17.5); White Blood Count 6.8 K/mm3 (4.8-10.8)
[2021-08-06 13:21] LABS: INR 0.96 (0.9-1.1); Prothrombin Time 10.9 seconds (10.1-12.5)
[2021-08-06 13:22] LABS: Alanine Aminotransferase 23 U/L (12-78); Albumin Level 4.3 g/dl (3.5-5.0); Albumin/Globulin Ratio 1.7 (1.1-1.8); Alkaline Phosphatase 70 U/L (38-126); Anion Gap 10.5 mEq/L (5-15); Aspartate Amino Transferase 38 U/L (17-59); Bilirubin,Total 0.2 mg/dl (0.2-1.3); Blood Urea Nitrogen 19 mg/dl (9-20); Calcium 8.7 mg/dl (8.4-10.2); Carbon Dioxide 32 mmol/L (22.0-30.0); Chloride 96 mmol/L (98-107); Creatinine Clearance Estimated 41 mL/min (50-200); Estimated Glomerular Filt Rate 46 ml/min (>60); GFR (African American) 55 ML/MIN (>60); Globulin 2.6 g/dL (1.3-3.2); Glucose 98 mg/dl (74-100); Potassium 4.5 mmoL/L (3.5-5.1); Sodium 134 mmol/L (136-145); Total Protein,Serum 6.9 g/dl (6.3-8.2)
[2021-08-06 13:25] LABS: Coronavirus 19, PCR Detected (NotDetected)
[2021-08-06 13:34] LABS: NT Pro Brain Natriuretic Pep. 1900 pg/mL (0-450); Troponin I 0.05 ng/ml (0.00-0.034)
--- NOTE | 2021-08-06 13:39 | CT_ITS ---
FINAL REPORT CLINICAL HISTORY: hypoxia, covid 19 FINDINGS: Thin section axial CT images of the chest were obtained with contrast. 3D reformatted images were also obtained. This study was performed with techniques to keep radiation doses as low as reasonably achievable (ALARA). Individualized dose reduction techniques using automated exposure control or adjustment of mA and/or kV according to the patient''s size were employed. There is no evidence of pulmonary embolism. There is no evidence of thoracic aortic aneurysm or dissection. There is no evidence of mediastinal or hilar mass or adenopathy. The patient is status post median sternotomy. There is no evidence of pulmonary mass or nodule. There is mild atelectasis or scar in the lung bases. Limited images of the upper abdomen are unremarkable. IMPRESSION: No evidence of pulmonary embolism. No mass or localized inflammatory process. Reviewed, Interpreted and Dictated by Lawson Dave III, MD Transcribed by Jada Hay Authenticated by Lawson Dave III, MD on 08/06/2021 04:26:[address] [facility]
--- NOTE | 2021-08-06 13:41 | CA_ITS ---
APPROVED REPORT EXAM: Comprehensive 2D, Doppler, and color-flow Echocardiogram Agricultural Researcher: Makenzie Myrick, RCS, RVS Ht: 5 ft 6 in Wt: 161lbs BSA: 1.82 BP: 111/69 mmHg Indications: Elevated Troponin, CAD-hx CABG, COPD, COVID-19,Hypoxia, AMS, SOA 2D Dimensions Aortic Root 4.18 cm LA Volume 49.60 mL Left Atrium 3.72 cm LA Volume Index [id number] mL/m2 (M/F) 16-34 LVOT 2.23 cm (M/F) 1.5-2.5 Ascending Aorta 3.37 cm M-Mode Dimensions RVDd 3.01 cm (0.9-2.6) LA Diam 4.25 cm (1.9-4.0) LVDd 3.94 cm (3.5-5.7) Ao Diam 4.20 cm (2.0-3.7) LVDs 2.89 cm (3.5-5.7) IVSd 1.37 cm (0.6-1.1) PWd 1.37 cm (0.6-1.1) EF (Teich) 52.70% EPSs 1.37 cm FS 26.60% EDV (Teich) 67.50 mL TAPSE 1.53 (<1.7) ESV (Teich) 31.90 mL LV Diastology E Decel Time 207.00 (160-240 msec) E/A Ratio 0.60 MED E' 5.20 (< 7 cm/sec) MED A' 8.60 cm/s E'/MED E' Ratio 10.98 (>14) LAT E' 5.20 (<10 cm/sec) LAT A' 7.90 cm/s E/LAT E' Ratio 10.98 (>14) Aortic Valve LVOT Max 52.00 (70-110 cm/s) LVOT VTI 9.41 cm AoV Peak Daniel. 116.00 (50-130 cm/s) AO Peak GR. 5.40 mmHg AO Mean GR. 2.50 (<5 mmHg) AO VTI 20.69 (18-25 cm) RADHA (VTI) 1.78 (2.5-4.5 cm2) Mitral Valve MV A Velocity 95.00 (40-130 cm/s) E/A Ratio 0.60 MV Decel. Time 207.00 (160-240 ms) MV Mean Gr. 1.70 (<2mmHg) MV PHT 100.00 ms Pulmonary Valve PV Peak Velocity 66.00 (50-150 cm/s) Tricuspid Valve TR P. Velocity 248.00 cm/s RAP Estimate 10.00 mmHg RVSP 34.60 mmHg Left Ventricle Left atrium is moderately enlarged, left ventricle is normal size, mild concentric left ventricular hypertrophy, visually estimated ejection fraction is 45%, there is abnormal septal motion, grade 1 diastolic dysfunction seen without tissue Doppler evidence of late left atrial pressure. Right Ventricle Right atrium and right ventricle are mildly enlarged with normal contractility, there is a catheter noted in the right ventricle which is likely a pacemaker or ICD lead. Aortic Valve Aortic valve is thickened and calcified, morphology of the aortic valve is not well visualized, Doppler is not indicated for significant aortic stenosis or aortic insufficiency. Mitral Valve Mitral valve leaflets are minimally thickened, there is mild mitral regurgitation. Tricuspid Valve Tricuspid valve is grossly normal, there is mild tricuspid regurgitation, calculated right ventricular systolic pressure 34 mmHg. Pulmonic Valve Pulmonic valve is poorly visualized. Great Vessels Aortic root is enlarged measuring 4.2 cm Inferior vena cava is poorly visualized. Pericardium No significant pericardial effusion noted. Conclusion 1. Biatrial enlargement, normal left ventricular size, mild concentric left ventricular hypertrophy, visually estimated ejection fraction 45%, there is abnormal septal motion, grade 1 diastolic dysfunction seen without tissue Doppler evidence of raise left atrial pressure. 2. Mildly enlarged right ventricle with normal contractility. 3. Aortic root is enlarged measuring 4.2 cm, aortic valve is thickened and calcified, morphology of the aortic valve is not well visualized, Doppler is not indicated for significant aortic stenosis or aortic insufficiency. 4. Mild mitral and tricuspid regurgitation. Calculated right ventricular systolic pressure 34 mmHg. 5. No significant pericardial effusion noted. 6. Inferior vena cava is poorly visualized. Electronic
--- NOTE | 2021-08-06 16:35 | ECG_ITS ---
APPROVED REPORT Exam: Resting ECG HR:72 bpm ECG Measurements Heart Rate 72 AXES CO 246 P 52 QRSd 128 QRS -72 QT 400 T 115 QTc 424 Conclusion SINUS RHYTHM WITH FIRST DEGREE AV BLOCK WITH OCCASIONAL VENTRICULAR PREMATURE COMPLEXES LEFT AXIS DEVIATION [QRS AXIS < -30] SEPTAL MYOCARDIAL INFARCTION , PROBABLY OLD [40+ ms Q WAVE IN V1/V2] MODERATE T-WAVE ABNORMALITY, CONSIDER LATERAL ISCHEMIA [-0.1+ mV T-WAVE IN I/aVL/V5/V6] ABNORMAL ECG UNCONFIRMED REPORT Electronically signed by : Bhargav Palma MD 08/12/2021 18:36:10
[2021-08-06 17:43] LABS: Troponin I 0.02 ng/ml (0.00-0.034)
--- NOTE | 2021-08-06 18:56 | PC.NURSE ---
Pt arrived to the floor at this time.
--- NOTE | 2021-08-06 20:03 | HMH.HP ---
*Admission Date: 08/06/21 *Chief complaint: mental status changes, covid *History of present illness: Patient is a 76-year-old white male, well-known to me, seen in the office earlier today. He was brought in by his daughter who has noted progressive confusion. Patient has been increasingly forgetful, could not remember his dog's name. 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 He has fibrotic crackles in both bases which are always evident. Remote history of Mycobacterium infection. Patient has a history of coronary artery disease, status post CABG. He has a propensity for flash pulmonary edema and volume overload. Several members of the patient's family had been ill with viral features. He had contact with them, as well as to the grocery store. He has not been immunized against COVID. His daughter noted a very vigorous cough which worsened over the last few days. Patient's saturations were in the high 80s in the office. He wears oxygen at home and a as needed basis. In the office he appeared to be euvolemic in the periphery, no calf swelling or tenderness. CTA revealed no pulmonary embolism. Chest x-ray showed some changes at the left base. Patient has significant peripheral vascular disease claudication pain in both legs. [facility] History Medical History: Reports:: Atrial Fibrillation, Chronic Obstructive Pulmonary Disease (COPD), Coronary Artery Disease, Hyperlipidemia, Hypertension, Internal Pacemaker Denies:: Cancer, Diabetes Mellitus Type 1, Diabetes Mellitus Type 2, MRSA, Seizures *Have you ever received a pneumonia vaccine?: No *Have you received a flu vaccine this season?: Yes Other Medical History: Reports: Arthritis Other Surgeries: Yes: Angiogram, CABG, Cardiac Catheterization, Cardiac Surgery, Colonoscopy, Coronary Stent, Pacemaker Amputation: No - *Social History Smoking Status: Former smoker Tobacco Type: cigarettes Alcohol Intake: never Alcohol Intake Frequency:: holidays/special occasions only Substance Use Type: denies use *Occupational Status:: retired Housing: house Household Members: children *Travel in the last 8 weeks: None Family Hx:: No significant family history Review of Systems - Constitutional Reports weakness - Eyes Denies change in vision - ENT Denies abnormal hearing - *Cardiovascular Reports shortness of breath, Denies chest pain - *Respiratory Reports chest congestion, Reports cough, Reports shortness of breath, Reports shortness of breath with activity, Denies coughing up blood - *Gastrointestinal Denies abdominal pain - *Genitourinary Denies difficulty urinating - *Musculoskeletal Reports abnormal walking, Reports joint pain, Reports muscle cramps, Reports muscle weakness - Integumentary/Breasts Denies yellowing of the skin - *Neurologic Reports abnormal walking, Reports behavioral changes, Reports confusion, Reports unsteadiness, Reports memory loss, Reports weakness, Denies seizure-like activity, Denies fainting - Psychiatric Reports behavioral changes, Reports confusion, Reports memory loss - Endocrine Denies cold intolerance, Denies excessive sweating - Hematologic/Lymphatic Denies easy bleeding, Denies easy bruising - Allergic/Immunologic Denies hives Meds Home Medications Medication Instructions Recorded Confirmed Type ipratropium 0.5 mg-albuterol 3 mg 1 dose INHALATION BID 03/23/20 08/06/21 History (2.5 mg base)/3 mL nebulization soln albuterol sulfate 90 mcg/actuation 1 inh INHALATION QID PRN #8.5 g 11/02/20 08/06/21 Rx aerosol inhaler losartan 50 mg tablet 50 mg PO DAILY #90 tab 04/05/21 08/06/21 Rx Aspirin [Aspirin 81mg EC Tab] 81 mg PO DAILY 04/19/21 08/06/21 History Clopidogrel Bisulfate [Plavix 75mg 75 mg PO DAILY 04/19/21 08/06/21 History Tab] Fluticasone/Vilanterol [Breo 1 inh INHALATION DAILY 04/19/21 08/06/21 History Ellipta] Ri
[2021-08-06 21:52] LABS: Troponin I 0.02 ng/ml (0.00-0.034)
[2021-08-07] VITALS (7 sets, daily range): BP systolic 125–166; BP diastolic 57–88; PULSE 66–102; RESP 18–20; TEMP 36.6–37.2; O2SAT 94–99; BMI 24.6
--- NOTE | 2021-08-07 07:15 | P.CONPHA_ITS ---
[facility] Pharmacy VTE Monitoring - Patient Demographics Admission date: 08/07/21 Report Date: 08/07/21 Time: 07:15 Allergies/Adverse Reactions: Patient Allergies sulfamethoxazole [From Bactrim] Adverse Reaction (Severe, Verified 08/06/21 11:45) Organ Failure trimethoprim [From Bactrim] Adverse Reaction (Severe, Verified 08/06/21 11:45) Organ Failure Height: 1.68 m Weight: 69.5 kg Patient Problems: Current Active Problems COVID-19 virus infection (Acute) COPD exacerbation (Acute) Respiratory failure with hypoxia (Acute) Dyspnea (Chronic) Essential hypertension (Chronic) NIYAH (renal artery stenosis) (Chronic) PAD (peripheral artery disease) (Chronic) Erosive osteoarthritis of multiple sites (Acute) Chronic pain of lower extremity (Acute) History of tobacco abuse (Chronic) History of MAC infection (Acute) COPD (chronic obstructive pulmonary disease) (Chronic) Essential hypertension (Acute) CAD (coronary artery disease) (Chronic) History of coronary artery bypass graft (Chronic) - VTE Risk Labs: VTE Related Lab Results Hgb 13.6 g/dL (14.1-18.0) L 08/06/21 13:01 Hct 43.4 % (42.0-52.0) 08/06/21 13:01 Plt Count 216 K/mm3 (142-424) 08/06/21 13:01 PT 10.9 seconds (10.1-12.5) 08/06/21 13:01 INR 0.96 (0.9-1.1) 08/06/21 13:01 BUN 19 mg/dl (9-20) 08/06/21 13:01 Creatinine 1.50 mg/dl (0.66-1.25) H 08/06/21 13:01 Estimated Creat Clear 41 mL/min (50-200) 08/06/21 13:01 Was VTE Risk Assessment Performed: Yes VTE Score: 5 VTE Risk Level: Low Risk Clinical Trial Participant: No - Prophylaxis VTE Prophylaxis Ordered?: Yes Types of VTE Prophylaxis: TEDS Knee High
--- NOTE | 2021-08-07 07:40 | SW/DCPLANNER ---
PATIENT ADMITTED TO [facility] UNDER THE CARE OF DR MURILLO WHO IS A PATIENT OF [facility] FOR A LONG TIME.. HE RESIDES AT HOME IN [facility].. DAUGHTER BROUGHT HIM IN STATING HE HAS HAD SOME VIRAL SYMPTOMS AND HAS NOT BEEN HIMSELF.. CONFUSION HAS BEEN NOTED AND THIS IS NOT LIKE HIM.. HE HAS BEEN VACCINATED FOR COVID BUT SWAB WAS POSITIVE FOR COVID AND HYPOXIA.. WILL FOLLOW PATIENT THROUGH HIS ACUTE CARE STAY AND ASSIST WITH ANY HOME CARE THAT PATIENT MAY NEED AT TIME OF DISPOSITION..
--- NOTE | 2021-08-07 09:40 | HMH.PULMCON ---
*Admission Date: 08/07/21 *Reason for consult:: COVID-19 pneumonia *History of present illness: Mr. Leiva is a 76-year-old female prior smoker greater than [id number] smoking history, asthma COPD overlap syndrome, bronchiectasis, possible respiratory failure presented to the clinic with worsening respiratory system found to be having COVID-19 positive and pulmonary was called for further management [facility] History Medical History: Reports:: Atrial Fibrillation, Chronic Obstructive Pulmonary Disease (COPD), Coronary Artery Disease, Hyperlipidemia, Hypertension, Internal Pacemaker, Peripheral Artery Disease Denies:: Cancer, Diabetes Mellitus Type 1, Diabetes Mellitus Type 2, MRSA, Seizures *Have you ever received a pneumonia vaccine?: Yes *Have you received a flu vaccine this season?: Yes Other Medical History: Reports: Arthritis, Cataracts Laterality Cases: Bilateral: Cataract Other Surgeries: Yes: Angiogram, Appendectomy, CABG, Cardiac Catheterization, Cardiac Surgery, Cholecystectomy, Colonoscopy, Coronary Stent, Pacemaker Amputation: No Fractures: No - *Social History Smoking Status: Former smoker Tobacco Type: cigarettes # Packs/Day (cigarettes): 1 Alcohol Intake: current Alcohol Intake Frequency:: 0-2 drinks per day Substance Use Type: denies use *Occupational Status:: retired Housing: house Household Members: children *Travel in the last 8 weeks: None Family Hx:: No significant family history ROS - Cons Reports body ache(s), Reports fatigue, Denies fever(s) - Eyes Denies change in vision - ENT Denies bleeding gums - Card Reports shortness of breath, Reports shortness of breath with activity - Resp Respiratory: Reports chest congestion, Reports cough, Denies excessive phlegm production, Reports cough with sputum production - GI Gastrointestingal: Denies: abdominal pain, nausea - Psych Denies thoughts of hurting/killing others, Denies thoughts of hurting/killing yourself Meds Home Medications Medication Instructions Recorded Confirmed Type ipratropium 0.5 mg-albuterol 3 mg 1 dose INHALATION BID 03/23/20 08/06/21 History (2.5 mg base)/3 mL nebulization soln albuterol sulfate 90 mcg/actuation 1 inh INHALATION QID PRN #8.5 g 11/02/20 08/06/21 Rx aerosol inhaler losartan 50 mg tablet 50 mg PO DAILY #90 tab 04/05/21 08/06/21 Rx Aspirin [Aspirin 81mg EC Tab] 81 mg PO DAILY 04/19/21 08/06/21 History Clopidogrel Bisulfate [Plavix 75mg 75 mg PO DAILY 04/19/21 08/06/21 History Tab] Fluticasone/Vilanterol [Breo 1 inh INHALATION DAILY 04/19/21 08/06/21 History Ellipta] Rivaroxaban [Xarelto 2.5mg Tab*] 2.5 mg PO BID 04/19/21 08/06/21 History atorvastatin 10 mg tablet 10 mg PO DAILY #90 tab 05/17/21 08/06/21 Rx carvedilol 25 mg tablet 25 mg PO BID #180 tab 07/09/21 08/06/21 Rx gabapentin 600 mg tablet 600 mg PO TID PRN #90 tab 08/02/21 08/06/21 Rx hydrocodone 10 mg-acetaminophen 1 tab PO DAILY PRN #30 tab 08/02/21 08/06/21 Rx 325 mg tablet Furosemide [Furosemide 20mg Tab*] 20 mg PO DAILY 08/06/21 08/06/21 History Pantoprazole Sodium [Protonix 40mg 40 mg PO DAILY 08/07/21 08/07/21 History tablet] Allergies Allergy/AdvReac Type Severity Reaction Status Date / Time sulfamethoxazole AdvReac Severe Organ Verified 08/06/21 11:45 [From Bactrim] Failure trimethoprim [From Bactrim] AdvReac Severe Organ Verified 08/06/21 11:45 Failure Exam - Constitutional Constitutional:: Present: no acute distress, comfortable - HENNC Exam HENMT: Present: normocephalic, atraumatic - Eye Exam Eyes:: Present: normal appearance both eyes and related structures - Neck Exam Neck:: Present: normal visual inspection - Respiratory Exam Respiratory:: Present: able to speak in complete sentences, no respiratory distress, crackles. Absent: rales, wheezing - Cardiovascular Exam Cardiac:: Present: S1, S2 - GI Exam GI:: Present: soft - Skin Exam Skin: Present: warm, no rash
--- NOTE | 2021-08-07 09:56 | HMH.CNCARD ---
History of Present Illness Consult date: 08/07/21 Requesting physician: Aman Padilla Chief complaint: COVID, elevated troponin Additional Medical History:: 1. CAD A. CABG, approximately 2016, [facility]. Followed by Dr. Paul B. History of CHF C. History of Pacer insertion that has been upgraded to AICD approximately, 2018 D. History of coronary stenting. 2. HTN A. Echo, 07/2021, 1. Biatrial enlargement, normal left ventricular size, mild concentric left ventricular hypertrophy, visually estimated ejection fraction 45%, there is abnormal septal motion, grade 1 diastolic dysfunction seen without tissue Doppler evidence of raise left atrial pressure. 2. Mildly enlarged right ventricle with normal contractility. 3. Aortic root is enlarged measuring 4.2 cm, aortic valve is thickened and calcified, morphology of the aortic valve is not well visualized, Doppler is not indicated for significant aortic stenosis or aortic insufficiency. 4. Mild mitral and tricuspid regurgitation. Calculated right ventricular systolic pressure 34 mmHg. 5. No significant pericardial effusion noted. 6. Inferior vena cava is poorly visualized. Electronically signed by : Manoj Fernando MD 08/06/2021 19:27:05 3. COPD/Fibrosis/prior mycobacterium infection 4. Peripheral Vascular Disease A. Chronic low dose Xarelto therapy. 5. Elevated D-dimer, 07/2021 A. CTA of chest negative for PE. 6. History of Pacemaker placement which has been upgraded to AICD about 2019 A. Reported history of PAF. EKG here is sinus, 07/2021. 7. Hyperlipidemia A. On statin therapy. History of present illness: Patient is a 76-year-old white male, well-known to me, seen in the office earlier today. He was brought in by his daughter who has noted progressive confusion. Patient has been increasingly forgetful, could not remember his dog's name. 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 He has fibrotic crackles in both bases which are always evident. Remote history of Mycobacterium infection. Patient has a history of coronary artery disease, status post CABG. He has a propensity for flash pulmonary edema and volume overload. Several members of the patient's family had been ill with viral features. He had contact with them, as well as to the grocery store. He has not been immunized against COVID. His daughter noted a very vigorous cough which worsened over the last few days. Patient's saturations were in the high 80s in the office. He wears oxygen at home and a as needed basis. In the office he appeared to be euvolemic in the periphery, no calf swelling or tenderness. CTA revealed no pulmonary embolism. Chest x-ray showed some changes at the left base. Patient has significant peripheral vascular disease claudication pain in both legs. The above per Dr. Padilla Patient confirms above. Denies chest pains. Last saw his Pathology Transcriptionist, Dr. Paul, 3-4 months ago. AICD in situ and followed by his cloth beamer regularly. Single elevated troponin on admission with follow up troponins normal was likely due to cardiac strain from COVID. Echo this admission shows EF 45% with RVSP of 34 mm Hg indicative of pulmonary issues. He takes lasix daily but will give extra today and tomorrow for possible CHF exacerbation related to COVID. [facility] History Medical History: Reports:: Atrial Fibrillation, Chronic Obstructive Pulmonary Disease (COPD), Coronary Artery Disease, Hyperlipidemia, Hypertension, Internal Pacemaker, Peripheral Artery Disease Denies:: Cancer, Diabetes Mellitus Type 1, Diabetes Mellitus Type 2, MRSA, Seizures *Have you ever received a pneumonia vaccine?: Yes *Have you received a flu vaccine this season?: Yes Other Medical History: Reports: Arthritis, Cataracts Laterality Cases: Bilateral: Cataract Other Surgeries: Yes: Angiogram, Appendectomy, CABG, Cardia
--- NOTE | 2021-08-07 10:25 | HMH.PHAINT ---
VERIFIED HOME MEDIATIONS USING NOTE FROM PREVIOUS DR JUDITH
[2021-08-07 14:01] LABS: C-Reactive Protein 25.4 mg/L (0-4)
--- NOTE | 2021-08-07 14:11 | HMH.ACPN2 ---
Internal Medicine - PN: Subj *Date: 08/07/21 *Time: 08:20 Interval history: pt states he is doing well and soa improved Exam Vital signs and Labs for Last 24 Hours: Temp Pulse Resp BP Pulse Ox 98.3 F 88 18 138/68 95 08/07/21 11:17 08/07/21 08:00 08/07/21 11:17 08/07/21 11:17 08/07/21 11:17 Laboratory Results - last 24 hr 08/06/21 13:01: PT 10.9, INR 0.96 08/06/21 16:49: Troponin I 0.02 08/06/21 20:28: Troponin I 0.02 08/07/21 08:14: C-Reactive Protein 25.4 H 08/07/21 08:44: D-Dimer 0.90 H I & O for Last 24 hours: Intake & Output 08/05/21 08/06/21 08/07/21 08/08/21 11:59 11:59 11:59 11:59 Intake Total 360 / 360 240 / 240 Balance 360 / 360 240 / 240 Weight 153 lb 3.54 oz 153 lb 3.54 oz - Constitutional no acute distress - *Routine HEENT Exam Head: Present: normocephalic Eye: Present: PERRL ENT: Present: mucous membranes moist - *Routine Neck Exam Present: supple. Absent: lymphadenopathy - *Routine Respiratory Exam Present: rhonchi - *Routine Cardiovascular Exam Present: RRR - *Routine Abdominal Exam Present: soft, normoactive bowel sounds. Absent: tenderness - *Routine Extremities Exam Absent: cyanosis, clubbing, edema - *Routine Skin Exam Present: warm. Absent: rash - *Routine Neurological Exam Present: alert, oriented X3 Assessment and Plan (1) COVID-19 virus infection Status: Acute Category: Medical Code(s): U07.1 - COVID-19 (2) Respiratory failure with hypoxia Status: Acute Qualifiers: Chronicity: acute on chronic Qualified Code(s): J96.21 - Acute and chronic respiratory failure with hypoxia Category: Medical Code(s): J96.91 - Respiratory failure, unspecified with hypoxia (3) Chronic pain of lower extremity Status: Acute Qualifiers: Laterality: bilateral Qualified Code(s): M79.604 - Pain in right leg; M79.605 - Pain in left leg; G89.29 - Other chronic pain Category: Medical Code(s): M79.606 - Pain in leg, unspecified; G89.29 - Other chronic pain (4) Erosive osteoarthritis of multiple sites Status: Acute Category: Medical Code(s): M15.4 - Erosive (osteo)arthritis (5) Essential hypertension Status: Acute Category: Medical Code(s): I10 - Essential (primary) hypertension (6) History of MAC infection Status: Acute Category: Medical Code(s): Z86.19 - Personal history of other infectious and parasitic diseases (7) CAD (coronary artery disease) Status: Chronic Qualifiers: Coronary Disease-Associated Artery/Lesion type: [place] artery [place] vs. transplanted heart: [place] heart Associated angina: without angina Qualified Code(s): I25.10 - Atherosclerotic heart disease of [place] coronary artery without angina pectoris Category: Medical Code(s): I25.10 - Atherosclerotic heart disease of [place] coronary artery without angina pectoris (8) COPD (chronic obstructive pulmonary disease) Status: Chronic Qualifiers: COPD type: unspecified COPD Qualified Code(s): J44.9 - Chronic obstructive pulmonary disease, unspecified Category: Medical Code(s): J44.9 - Chronic obstructive pulmonary disease, unspecified (9) Dyspnea Status: Chronic Qualifiers: Dyspnea type: dyspnea on exertion Qualified Code(s): R06.00 - Dyspnea, unspecified Category: Medical Code(s): R06.00 - Dyspnea, unspecified (10) Essential hypertension Status: Chronic Category: Medical Code(s): I10 - Essential (primary) hypertension (11) History of coronary artery bypass graft Status: Chronic Category: Surgical Code(s): Z95.1 - Presence of aortocoronary bypass graft (12) History of tobacco abuse Status: Chronic Category: Social Hx Code(s): Z87.891 - Personal history of nicotine dependence (13) PAD (peripheral artery disease) Status: Chronic Category: Medical Code(s): I73.9 - Peripheral vascular disease, unspecified (14) NIYAH (renal artery stenosis) Status:
[2021-08-08] VITALS: BP 120/62; PULSE 77; PULSE 80; RESP 18; TEMP 36.6; O2SAT 96
[2021-08-08 04:00] VITALS: BP 104/63; PULSE 80; RESP 16; TEMP 36.9; O2SAT 93
[2021-08-08 05:00] VITALS: BMI 23.8
[2021-08-08 06:16] VITALS: O2SAT 95
[2021-08-08 06:32] LABS: Basophils % 0.5 % (0.1-2.0); Hematocrit 41.9 % (42.0-52.0); Hemoglobin 13.3 g/dL (14.1-18.0); Lymphocytes # 1.4 K/mm3 (0.7-4.5); Mean Corpuscular HGB Conc 31.8 g/dL (31.8-35.4); Mean Corpuscular Hemoglobin 31.3 pg (27.0-31.2); Mean Corpuscular Volume 98.5 fl (80-94); Mean Platelet Volume 8.2 fl (7.4-10.4); Monocytes # 0.5 K/mm3 (0.1-1.0); Monocytes % 10.4 % (1.7-9.3); Neutrophils # 2.9 K/mm3 (1.8-7.8); Neutrophils % 60.2 % (37.0-80.0); Platelet Count 219 K/mm3 (142-424); Red Blood Count 4.25 M/mm3 (4.60-6.20); Red Cell Distribution Width 12.9 % (11.5-17.5); White Blood Count 4.8 K/mm3 (4.8-10.8)
[2021-08-08 07:00] LABS: Alanine Aminotransferase 23 U/L (12-78); Albumin Level 4.3 g/dl (3.5-5.0); Albumin/Globulin Ratio 1.7 (1.1-1.8); Alkaline Phosphatase 60 U/L (38-126); Anion Gap 12.5 mEq/L (5-15); Aspartate Amino Transferase 39 U/L (17-59); Bilirubin,Total 0.3 mg/dl (0.2-1.3); Blood Urea Nitrogen 30 mg/dl (9-20); Calcium 8.4 mg/dl (8.4-10.2); Carbon Dioxide 33 mmol/L (22.0-30.0); Chloride 97 mmol/L (98-107); Creatinine Clearance Estimated 51 mL/min (50-200); Estimated Glomerular Filt Rate 59 ml/min (>60); GFR (African American) 71 ML/MIN (>60); Globulin 2.5 g/dL (1.3-3.2); Glucose 125 mg/dl (74-100); Potassium 4.5 mmoL/L (3.5-5.1); Sodium 138 mmol/L (136-145); Total Protein,Serum 6.8 g/dl (6.3-8.2)
[2021-08-08 08:00] VITALS: BP 133/71; PULSE 88; PULSE 97
--- NOTE | 2021-08-08 09:34 | HMH.PULMPN ---
Internal Medicine - PN: Subj *Date: 08/08/21 *Time: 11:39 Interval history: No acute respiratory vents overnight. Patient weaned to room air. Admits improvement in his symptoms. Exam - Constitutional Constitutional:: Present: no acute distress, comfortable - HENMT Exam HENMT: Present: normocephalic, atraumatic - Eye Exam Eyes:: Present: normal appearance both eyes and related structures - Neck Exam Neck:: Present: normal visual inspection - Respiratory Exam Respiratory:: Present: able to speak in complete sentences, no respiratory distress. Absent: rales, wheezing - Cardiovascular Exam Cardiac:: Present: S1, S2 - GI Exam GI:: Present: soft, no hepatosplenomegaly - Skin Exam Skin: Present: warm, no rash - Neurological Exam Neurological: Present: alert, awake, normal cognition - Extremities Exam Extremities: Present: no cyanosis, no clubbing, no edema Assessment and Plan (1) COVID-19 virus infection Status: Acute Category: Medical Code(s): U07.1 - COVID-19 (2) Respiratory failure with hypoxia Status: Acute Qualifiers: Chronicity: acute on chronic Qualified Code(s): J96.21 - Acute and chronic respiratory failure with hypoxia Category: Medical Code(s): J96.91 - Respiratory failure, unspecified with hypoxia (3) Chronic pain of lower extremity Status: Acute Qualifiers: Laterality: bilateral Qualified Code(s): M79.604 - Pain in right leg; M79.605 - Pain in left leg; G89.29 - Other chronic pain Category: Medical Code(s): M79.606 - Pain in leg, unspecified; G89.29 - Other chronic pain (4) Erosive osteoarthritis of multiple sites Status: Acute Category: Medical Code(s): M15.4 - Erosive (osteo)arthritis (5) Essential hypertension Status: Acute Category: Medical Code(s): I10 - Essential (primary) hypertension (6) History of MAC infection Status: Acute Category: Medical Code(s): Z86.19 - Personal history of other infectious and parasitic diseases (7) CAD (coronary artery disease) Status: Chronic Qualifiers: Coronary Disease-Associated Artery/Lesion type: [place] artery [place] vs. transplanted heart: [place] heart Associated angina: without angina Qualified Code(s): I25.10 - Atherosclerotic heart disease of [place] coronary artery without angina pectoris Category: Medical Code(s): I25.10 - Atherosclerotic heart disease of [place] coronary artery without angina pectoris (8) COPD (chronic obstructive pulmonary disease) Status: Chronic Qualifiers: COPD type: unspecified COPD Qualified Code(s): J44.9 - Chronic obstructive pulmonary disease, unspecified Category: Medical Code(s): J44.9 - Chronic obstructive pulmonary disease, unspecified (9) Dyspnea Status: Chronic Qualifiers: Dyspnea type: dyspnea on exertion Qualified Code(s): R06.00 - Dyspnea, unspecified Category: Medical Code(s): R06.00 - Dyspnea, unspecified (10) Essential hypertension Status: Chronic Category: Medical Code(s): I10 - Essential (primary) hypertension (11) History of coronary artery bypass graft Status: Chronic Category: Surgical Code(s): Z95.1 - Presence of aortocoronary bypass graft (12) History of tobacco abuse Status: Chronic Category: Social Hx Code(s): Z87.891 - Personal history of nicotine dependence (13) PAD (peripheral artery disease) Status: Chronic Category: Medical Code(s): I73.9 - Peripheral vascular disease, unspecified (14) NIYAH (renal artery stenosis) Status: Chronic Category: Medical Code(s): I70.1 - Atherosclerosis of renal artery - Assessment and plan all Dx Assessment and Plan for all problems:: #COVID-19 pneumonia: Greater than [id number] smoking history, last smoked in 2008. Not yet vaccinated for COVID-19 pneumonia Chronic hypoxic respiratory failure on long-term oxygen therapy at 2 L at home on a as needed basis. H/O asthma COPD overlap syndrome, lung cancer scree
--- NOTE | 2021-08-08 10:41 | HMH.DCSUM ---
General - General Admission date:: 08/06/21 Discharge date: 08/08/21 HPI HPI: Patient is a 76-year-old white male, well-known to me, seen in the office earlier today. He was brought in by his daughter who has noted progressive confusion. Patient has been increasingly forgetful, could not remember his dog's name. 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 He has fibrotic crackles in both bases which are always evident. Remote history of Mycobacterium infection. Patient has a history of coronary artery disease, status post CABG. He has a propensity for flash pulmonary edema and volume overload. Several members of the patient's family had been ill with viral features. He had contact with them, as well as to the grocery store. He has not been immunized against COVID. His daughter noted a very vigorous cough which worsened over the last few days. Patient's saturations were in the high 80s in the office. He wears oxygen at home and a as needed basis. In the office he appeared to be euvolemic in the periphery, no calf swelling or tenderness. CTA revealed no pulmonary embolism. Chest x-ray showed some changes at the left base. Patient has significant peripheral vascular disease claudication pain in both legs. Hospital Course Hospital Course: 76-year-old male patient admitted to the hospital with progressive confusion, increasing forgetfulness, exposure to several family members with COVID, increasing cough, and saturations in the high 80s in the office. He does wear oxygen at home as needed and has not been immunized. He does have a history of chronic lung disease, CAD, status post CABG and purulent flash pulmonary edema and volume overload 08/06/21 CXR: FINDINGS: Two views of the chest were obtained. The patient is status post median sternotomy. There is a left subclavian AICD. The heart size and pulmonary vascularity are within normal limits. The mediastinum is normal. There is left basilar atelectasis. There is no pneumothorax. The bony thorax is intact. IMPRESSION: Left basilar atelectasis. Reviewed, Interpreted and Dictated by Lawson Dave III, MD 08/06/21 Chest CTA: FINDINGS: Thin section axial CT images of the chest were obtained with contrast. 3D reformatted images were also obtained. This study was performed with techniques to keep radiation doses as low as reasonably achievable (ALARA). Individualized dose reduction techniques using automated exposure control or adjustment of mA and/or kV according to the patient''s size were employed. There is no evidence of pulmonary embolism. There is no evidence of thoracic aortic aneurysm or dissection. There is no evidence of mediastinal or hilar mass or adenopathy. The patient is status post median sternotomy. There is no evidence of pulmonary mass or nodule. There is mild atelectasis or scar in the lung bases. Limited images of the upper abdomen are unremarkable. IMPRESSION: No evidence of pulmonary embolism. No mass or localized inflammatory process. Reviewed, Interpreted and Dictated by Lawson Dave III, MD 08/06/21 ECHO: Conclusion 1. Biatrial enlargement, normal left ventricular size, mild concentric left ventricular hypertrophy, visually estimated ejection fraction 45%, there is abnormal septal motion, grade 1 diastolic dysfunction seen without tissue Doppler evidence of raise left atrial pressure. 2. Mildly enlarged right ventricle with normal contractility. 3. Aortic root is enlarged measuring 4.2 cm, aortic valve is thickened and calcified, morphology of the aortic valve is not well visualized, Doppler is not indicated for significant aortic stenosis or aortic insufficiency. 4. Mild mitral and tricuspid regurgitation. Calculated right ventricular systolic pressure 34 mmHg. 5. No significant pericardial effusion noted. 6. Inferior vena cava
--- NOTE | 2021-08-08 14:23 | PC.NURSE ---
pt is discahrged from the unit. SAline lock removed. Pt and NOK verbalized understanding of all [facility] education and follow up appts.
== END 2021-08-08 14:30 | disposition home or self-care (01) | DRG 177 ==
LOC: ER 16:31 → 2ND 18:27
PROVIDERS: Internal Medicine Pulmonary Disease; Nurse Practitioner Family; Admitting Provider Emergency Medicine; Emergency Provider Emergency Medicine; PCP Family Medicine; Visit Provider Family Medicine
DX: U07.1 COVID-19 (principal); J12.82 Pneumonia due to coronavirus disease 2019; J96.11 Chronic respiratory failure with hypoxia; J44.0 Chronic obstructive pulmonary disease with (acute) lower respiratory infection; I48.91 Unspecified atrial fibrillation; I25.10 Atherosclerotic heart disease of native coronary artery without angina pectoris; E78.5 Hyperlipidemia, unspecified; I10 Essential (primary) hypertension; Z95.810 Presence of automatic (implantable) cardiac defibrillator; Z95.1 Presence of aortocoronary bypass graft; Z87.891 Personal history of nicotine dependence; M15.4 Erosive (osteo)arthritis; I73.9 Peripheral vascular disease, unspecified; I70.1 Atherosclerosis of renal artery; G89.29 Other chronic pain; M79.605 Pain in left leg; Z79.02 Long term (current) use of antithrombotics/antiplatelets
CPT/HCPCS: 36415; 71046; 71275; 80053; 83880; 84484; 85025; 85378; 85610; 86140; 87070; 87205; 93005; 93306; 94640; 94760; 96365; 99284; C9803; J0456; Q9967; U0003; U0005

== ENCOUNTER → 2022-10-27 11:04 | Outpatient (CLI) | payer MEDICARE, SELFPAY ==
[2022-10-27 15:24] LABS: Basophils % 0.4 % (0.1-2.0); Eosinophils # 0.3 K/mm3 (0.0-0.4); Eosinophils % 3.6 % (0.1-12.0); Hematocrit 42.6 % (42.0-52.0); Hemoglobin 13.4 g/dL (14.1-18.0); Lymphocytes # 1.8 K/mm3 (0.7-4.5); Lymphocytes % 25.5 % (10-50); Mean Corpuscular HGB Conc 31.5 g/dL (31.8-35.4); Mean Corpuscular Hemoglobin 30.7 pg (27.0-31.2); Mean Corpuscular Volume 97.5 fl (80-94); Mean Platelet Volume 8.2 fl (7.4-10.4); Monocytes # 0.5 K/mm3 (0.1-1.0); Monocytes % 7.3 % (1.7-9.3); Neutrophils # 4.5 K/mm3 (1.8-7.8); Neutrophils % 63.1 % (37.0-80.0); Platelet Count 255 K/mm3 (142-424); Red Blood Count 4.37 M/mm3 (4.60-6.20); Red Cell Distribution Width 13.7 % (11.5-17.5); White Blood Count 7.1 K/mm3 (4.8-10.8)
[2022-10-27 16:03] LABS: Alanine Aminotransferase 14 U/L (12-78); Albumin Level 4.3 g/dl (3.5-5.0); Albumin/Globulin Ratio 1.8 (1.1-1.8); Alkaline Phosphatase 70 U/L (38-126); Anion Gap 11.5 mEq/L (5-15); Aspartate Amino Transferase 28 U/L (17-59); Bilirubin,Total 0.3 mg/dl (0.2-1.3); Blood Urea Nitrogen 25 mg/dl (9-20); Calcium 9.1 mg/dl (8.4-10.2); Carbon Dioxide 30 mmol/L (22.0-30.0); Chloride 101 mmol/L (98-107); Chol/HDL Ratio 4.4 (1-3.5); Cholesterol 157 mg/dl (140-200); Estimated Glomerular Filt Rate 59 ml/min (>60); GFR (African American) 71 ML/MIN (>60); Globulin 2.4 g/dL (1.3-3.2); Glucose 127 mg/dl (74-100); HDL Cholesterol 36 mg/dl (40-60); Potassium 4.5 mmoL/L (3.5-5.1); Sodium 138 mmol/L (136-145); Total Protein,Serum 6.7 g/dl (6.3-8.2); Triglycerides 200 mg/dl (30-150); VLDL Cholesterol 40 mg/dL (0-40)
[2022-10-27 16:14] LABS: Direct LDL Cholesterol 90.18 mg/dL (100-129)
== END ==
PROVIDERS: PCP Family Medicine; Visit Provider Family Medicine
DX: E78.5 Hyperlipidemia, unspecified (principal); R79.89 Other specified abnormal findings of blood chemistry; J18.9 Pneumonia, unspecified organism; Z12.5 Encounter for screening for malignant neoplasm of prostate
CPT/HCPCS: 80053; 80061; 85025; G0103